=== PATIENT | male | born 1965 | race Caucasian/White ===

== ENCOUNTER 2018-03-12 08:57 | Inpatient (IN) | payer MEDICARE ==
[2018-03-12 09:20] VITALS: BMI 25.9
--- NOTE | 2018-03-12 13:38 | HP ---
CIWA Score - CIWA Score Nausea/Vomitin-No Nausea/No Vomiting Muscle Tremors: 4-Moderate,w/Arms Extend Anxiety: 4-Mod. Anxious/Guarded Agitation: 4-Moderately Restless Paroxysmal Sweats: 1-Minimal Palms Moist Orientation: 0-Oriented Tacttile Disturbances: 3-Moderate Itch/Numb/Burn Auditory Disturbances: 0-None Visual Disturbances: 0-None Headache: 0-None Present CIWA-Ar Total Score: 16 Admission ROS BHS - HPI Chief Complaint: ALCOHOL WITHDRAWAL SX Allergies/Adverse Reactions: Allergies Allergy/AdvReac Type Severity Reaction Status Date / Time No Known Allergies Allergy Verified 03/12/18 09:54 History of Present Illness: 52 Y/O H/MALE WITH A HX OF ALCOHOL DEPENDENCE SEEKING DETOX TX. PT REPORTS HIS DAUGHTER TOOK HIM TO [facility] YESTERDAY BECAUSE WAS NOT FEELING WELL AFTER DRINKING THE PREVIOUS DAY AND DEPRESSION. PT DISCHARGED TODAY. COPY OF D/ C PAPER IN PATIENT'S CHART. PT REPORTS HX DM AND DEPRESSION WITH NO MEDS. Exam Limitations: No Limitations - Ebola screening Have you traveled outside of the country in the last 21 days: No (N) Have you had contact with anyone from an Ebola affected area: No Have you been sick,other than usual withdrawal symptoms: No Do you have a fever: No - Review of Systems Constitutional: Chills, Loss of Appetite, Night Sweats, Changes in sleep, Unintentional Wgt. Loss EENT: reports: Blurred Vision, Tearing, Nose Congestion, Dental Problems ( MISSING TEETH), Throat Pain (SOMETIMIES) Respiratory: reports: No Symptoms reported Cardiac: reports: Lightheadedness, Chest Tightness GI: reports: Constipated, Diarrhea, Nausea, Poor Appetite, Poor Fluid Intake, Vomiting : reports: No Symptoms Reported Musculoskeletal: reports: Back Pain, Joint Pain, Muscle Pain Integumentary: reports: No Symptoms Reported Neuro: reports: Headache, Tremors, Unsteady Gait, Dizziness Endocrine: reports: Increased Hunger, Increased Thirst, Increased Urine Hematology: reports: Anemia (NO MEDS) Psychiatric: reports: Orientated x3, Anxious, Depressed Other Systems: Reviewed and Negative Patient History - Patient Medical History Hx Anemia: Yes (NO MEDS) Hx Asthma: No Hx Chronic Obstructive Pulmonary Disease (COPD): No Hx Cardiac Disorders: No Hx Hypertension: No (BP TODAY 157/97 BUT DENIES PREVIOUS HX) Hx Hypercholesterolemia: Yes (NO MEDS;LAST TAKEN TWO YEARS AGO) HX Cerebrovascular Accident: No Hx Seizures: No Hx Diabetes: Yes (NO CURRENT MEDS; LAST TAKEN 2 YRS AGO"WHEN I LOST THEM.METFORMIN 2X A DAY") Hx Gastrointestinal Disorders: No Hx Genitourinary Disorders: No Hx Sexually Transmitted Disorders: No Hx Renal Disease (ESRD): No Hx Thyroid Disease: No Hx Human Immunodeficiency Virus (HIV): No (NEGATIVE HX) Hx Hepatitis C: No Hx Depression: Yes (NO CURRENT MED;LAST TAKEN 2 YEARS AGO) Hx Suicide Attempt: Yes (hanged self with a rope at age 40;DENIES CURRENT S/I) Hx Bipolar Disorder: Yes Hx Schizophrenia: No - Patient Surgical History Past Surgical History: Yes Hx Neurologic Surgery: No Hx Cataract Extraction: No Hx Cardiac Surgery: No Hx Lung Surgery: No Hx Breast Surgery: No Hx Breast Biopsy: No Hx Abdominal Surgery: Yes Hx Appendectomy: Yes Hx Cholecystectomy: No Hx Genitourinary Surgery: No Hx Section: No Hx Orthopedic Surgery: No Other Surgical History: lower back sx Anesthesia Reaction: No - PPD History Previous Implant?: Yes Documented Results: Negative w/o proof Implanted On Prior [facility] Admission?: No - Reproductive History Patient is a Female of Child Bearing Age (11 -55 yrs old): No (MALE) - Smoking Cessation Smoking history: Current every day smoker Have you smoked in the past 12 months: Yes Aproximately how many cigarettes per day: 10 Hx Chewing Tobacco Use: No Initiated information on smoking cessation: Yes 'Breaking Loose' booklet given: 03/12/18 - Substance & Tx. History Hx Alcohol Use: Yes (BEER/VODKA) Hx Substance Use: No (STOPPED HEROIN X ONE YEAR AGO) Substance Use Type: Alcohol Hx Substance Use Treatment: Yes ([facility] FOR HEROIN;) - Substances Abused Alcohol-beer/vodka Route: Oral Frequency: 3-6 times per week Amount used: 1 case//1-2 pts. Age of first use: 10 Date of Last Use: 03/10/18 Family Disease History - Family Disease History Family Disease History: Diabetes: Father (), CA: Mother (), Other: Sister (HEROIN ADDICTION) Admission Physical Exam BHS - Vital Signs Vital Signs: Vital Signs - 24 hr 08/20/18 09:19 Temperature 97.6 F Pulse Rate 77 Respiratory 18 Rate Blood Pressure 157/97 - Physical General Appearance: Yes: Moderate Distress, Irritable, Anxious HEENTM: Yes: EOMI, Normocephalic, CLARIBEL, Pharynx Normal Respiratory: Yes: Chest Non-Tender, Lungs Clear, Normal Breath Sounds, No Respiratory Distress Neck: Yes: No masses,lesions,Nodules, Supple, Trachea in good position Breast: Yes: Breast Exam Deferred Cardiology: Yes: Regular Rhythm, Regular Rate, S1, S2 Abdominal: Yes: Within Normal Limits, Normal Bowel Sounds, Non Tender, Soft, Surgical Scar (MID LOWER ABDOMEN-S/P APPENDECTOMY) Genitourinary: Yes: Within Normal Limits Back: Yes: Surgical Scar (S/P SPINE SX DUE TO INFECTION) Musculoskeletal: Yes: full range of Motion, Gait Steady Extremities: Yes: Normal Range of Motion, Non-Tender Neurological: Yes: 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-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 NML intact, Fully Oriented, Alert, Motor Strength 5/5 Integumentary: Yes: Dry, Warm Lymphatic: Yes: Within Normal Limits - Diagnostic (1) Alcohol dependence with uncomplicated withdrawal Current Visit: Yes Status: Acute (2) Diabetes mellitus Current Visit: Yes Status: Chronic (3) History of hyperlipidemia Current Visit: Yes Status: Suspected (4) Nicotine dependence Current Visit: Yes Status: Acute Qualifiers: Nicotine product type: cigarettes Substance use status: in withdrawal Qualified Code(s): F17.213 - Nicotine dependence, cigarettes, with withdrawal (5) Back pain Current Visit: Yes Status: Chronic Qualifiers: Back pain location: low back pain Back pain laterality: midline Sciatica presence: without sciatica (6) History of anemia Current Visit: Yes Status: Suspected (7) History of depression Current Visit: Yes Status: Chronic Cleared for Admission [facility] - Detox or Rehab [facility] Level of Care: Medically Managed Detox Regimen/Protocol: Librium [facility] Breath Alcohol Content Breath Alcohol Content: 0 Urine Drug Screen - Results Drug Screen Negative: Yes
[2018-03-12] MEDS ORDERED: chlordiazePOXIDE HCL 25 MG CAPSULE PO PRN (13:59)
[2018-03-12] MEDS ORDERED: NICOTINE POLACRILEX 2 MG GUM BUC PRN (13:59)
[2018-03-12] MEDS ORDERED: LOPERAMIDE HCL 2 MG CAPSULE PO PRN (13:59)
[2018-03-12] MEDS ORDERED: MAGNESIUM HYDROX 2400MG/30ML ORAL SUSPENSION 30 ML CUP PO PRN (13:59)
[2018-03-12] MEDS ORDERED: ACETAMINOPHEN 325 MG TABLET (FP) PO PRN (13:59)
[2018-03-12] MEDS ORDERED: MAGNESIUM CITRATE 300 ML BOTTLE PO PRN (13:59)
[2018-03-12] MEDS ORDERED: MAG HYDROX/AL HYDROX/SIMETH 30 ML UNIT-DOSE CUP PO PRN (13:59)
[2018-03-12] MEDS ORDERED: MENTHOL/PHENOL 1 EACH UD MM PRN (13:59)
[2018-03-12] MEDS ORDERED: IBUPROFEN 400 MG TABLET (FP) PO PRN (13:59)
[2018-03-12] MEDS ORDERED: P-EPHED 60MG/TRIPROLIDI 2.5MG TABLET PO PRN (13:59)
[2018-03-12] MEDS ORDERED: guaiFENesin/D-METHORPHAN HB 10 ML UNIT-DOSE CUPS PO PRN (13:59)
[2018-03-12] MEDS: NICOTINE 14 MG/24 HOURS TOPICAL PATCH TD SCH (14:55)
--- NOTE | 2018-03-12 15:10 | EKG ---
Test Reason : Blood Pressure : / mmHG Vent. Rate : 069 BPM Atrial Rate : 069 BPM P-R Int : 148 ms QRS Dur : 096 ms QT Int : 398 ms P-R-T Axes : 066 035 063 degrees QTc Int : 426 ms NORMAL SINUS RHYTHM NORMAL ECG NO PREVIOUS ECGS AVAILABLE Confirmed by STEPH MORFIN MD ([id number]) on 03/12/2018 3:09:50 PM Referred By: Confirmed By:STEPH MORFIN MD
[2018-03-12] MEDS: chlordiazePOXIDE HCL 25 MG CAPSULE PO SCH ×2 (17:21→22:38)
[2018-03-12] MEDS: THIAMINE HCL 100 MG TABLET (FP) PO SCH (22:39)
[2018-03-12] MEDS: MELATONIN 5 MG TABLETS PO PRN (22:39)
[2018-03-13 00:53] LABS: URINE APPEARANCE CLEAR; URINE BILIRUBIN NEGATIVE (<2.0 mg/dL); URINE COLOR YELLOW; URINE GLUCOSE (UA) 1+ (NEGATIVE); URINE KETONE NEGATIVE (NEGATIVE); URINE LEUK ESTERASE NEGATIVE (NEGATIVE); URINE NITRITE NEGATIVE (NEGATIVE); URINE PROTEIN NEGATIVE (NEGATIVE)
[2018-03-13] MEDS: chlordiazePOXIDE HCL 25 MG CAPSULE PO SCH ×4 (05:22→22:25)
[2018-03-13 10:23] LABS: HEMATOCRIT 42.7 % (35.4-49); HEMOGLOBIN 14.2 GM/dL (11.7-16.9); MCH 30.5 pg (25.7-33.7); MCHC 33.2 g/dl (32.0-35.9); MEAN CELL VOLUME 91.9 fl (80-96); MEAN PLT VOLUME 9.4 fl (7.5-11.1); PLATELET COUNT 216 K/MM3 (134-434); RBC 4.65 M/mm3 (4.00-5.60); WHITE BLOOD COUNT 6.2 K/mm3 (4.0-10.0)
[2018-03-13] MEDS: PRENATAL VITAMINS W/ FOLIC ACID TABLET (FP) PO SCH (10:27)
[2018-03-13] MEDS: NICOTINE 14 MG/24 HOURS TOPICAL PATCH TD SCH (10:28)
[2018-03-13 10:52] LABS: ALBUMIN 3.7 g/dl (3.4-5.0); ANION GAP 6 (8-16); BLOOD UREA NITROGEN 11 mg/dL (7-18); CALCIUM 8.9 mg/dL (8.5-10.1); CHLORIDE 103 mmol/L (98-107); CO2 30 mmol/L (21-32); GLUCOSE,RANDOM 284 mg/dL (74-106); POTASSIUM 4.8 mmol/L (3.5-5.1); SODIUM 139 mmol/L (136-145)
[2018-03-13 10:56] LABS: ALK PHOS 130 U/L (45-117); BILIRUBIN,TOTAL 0.3 mg/dL (0.2-1.0); CREATININE 0.8 mg/dL (0.7-1.3); SGOT/AST 61 U/L (15-37); SGPT/ALT 187 U/L (12-78); TOT PROT 7.6 g/dl (6.4-8.2)
--- NOTE | 2018-03-13 11:13 | PN ---
S CIWA - CIWA Score Nausea/Vomitin-No Nausea/No Vomiting Muscle Tremors: 5 Anxiety: 4-Mod. Anxious/Guarded Agitation: 3 Paroxysmal Sweats: 1-Minimal Palms Moist Orientation: 0-Oriented Tacttile Disturbances: 0-None Auditory Disturbances: 0-None Visual Disturbances: 0-None Headache: 0-None Present CIWA-Ar Total Score: 13 BHS Progress Note (SOAP) Subjective: ANXIETY,SWEATS,TREMORS,FATIGUE. Objective: 03/13/18 11:08 Vital Signs 03/13/18 03/13/18 03/13/18 03:30 06:11 06:30 Temperature 97.0 F L Pulse Rate 66 Respiratory 18 18 18 Rate Blood Pressure 97/67 03/13/18 09:21 Temperature 97.7 F Pulse Rate 77 Respiratory 18 Rate Blood Pressure 123/86 Laboratory Tests 03/12/18 03/12/18 03/12/18 10:18 16:23 23:21 WBC RBC Hgb Hct MCV MCH MCHC RDW Plt Count MPV Sodium Potassium Chloride Carbon Dioxide Anion Gap BUN Creatinine Creat Clearance w eGFR POC Glucometer 284 249 Random Glucose Calcium Total Bilirubin AST ALT Alkaline Phosphatase Total Protein Albumin Urine Color Yellow Urine Appearance Clear Urine pH 5.0 Ur Specific [place] 1.024 Urine Protein Negative Urine Glucose (UA) 1+ H Urine Ketones Negative Urine Blood Negative Urine Nitrite Negative Urine Bilirubin Negative Urine Urobilinogen 2.0 Ur Leukocyte Esterase Negative 03/13/18 03/13/18 03/13/18 05:22 06:00 06:00 WBC 6.2 RBC 4.65 Hgb 14.2 Hct 42.7 MCV 91.9 MCH 30.5 MCHC 33.2 RDW 13.0 Plt Count 216 MPV 9.4 Sodium 139 Potassium 4.8 Chloride 103 Carbon Dioxide 30 Anion Gap 6 L BUN 11 Creatinine 0.8 Creat Clearance w eGFR > 60 POC Glucometer 203 Random Glucose 284 H Calcium 8.9 Total Bilirubin 0.3 AST 61 H ALT 187 H Alkaline Phosphatase 130 H Total Protein 7.6 Albumin 3.7 Urine Color Urine Appearance Urine pH Ur Specific [place] Urine Protein Urine Glucose (UA) Urine Ketones Urine Blood Urine Nitrite Urine Bilirubin Urine Urobilinogen Ur Leukocyte Esterase ELEVATED LIVER ENZYMES Assessment: 03/13/18 11:08 WITHDRAWAL SX Plan: CONTINUE DETOX INCREASE PO FLUIDS REPEAT LIVER PROFILE IN ON 03/15/18
[2018-03-13 11:50] LABS: SICKLE CELL SCREEN NEGATIVE (NEGATIVE)
--- NOTE | 2018-03-13 16:13 | CONSULT ---
[facility] Psychiatric Consult - Data Date of interview: 03/13/18 Admission source: [facility] Identifying data: First admission to [facility] for this 52 y/o male seeking detox treatment on for alcohol and cannabis dependence.Patient is single,a father of five,domiciled (lives with niece),unemployed and supported on [facility] benefits. Substance Abuse History: Confirmed by patient.Smoking history: Current every day smoker. Have you smoked in the past 12 months: Yes. Aproximately how many cigarettes per day: 10. Hx Chewing Tobacco Use: No. Initiated information on smoking cessation: Yes. 'Breaking Loose' booklet given: 03/12/18. - Substance & Tx. History. Hx Alcohol Use: Yes (BEER/VODKA). Hx Substance Use: No ( STOPPED HEROIN X ONE YEAR AGO). Substance Use Type: Alcohol. Hx Substance Use Treatment: Yes ([facility] FOR HEROIN;). - Substances Abused. Alcohol-beer/vodka. Route: Oral. Frequency: 3-6 times per week. Amount used: 1 case//1-2 pts. Age of first use: 10. Date of Last Use: 03/10/18 Medical History: Hypertension,diabetes mellitus,anemia,chronic lumbar pain and a history of abdominal surgery (appendectomy). Psychiatric History: Patient admits to a history of 2-3 psychiatric hospitalizations ([facility]).Diagnosed with Bipolar Disorder.Medications not recalled (not taken for several months).Patient denies contact with psychiatric OPD care providers.Just returned from [place], [place].Mr Pandya admitsto a history of three suicide attempts (overdose with drugs and hanging years ago). Physical/Sexual Abuse/Trauma History: Patient denies. Additional Comment: Drug Screen is negative. Mental Status Exam - Mental Status Exam Alert and Oriented to: Time, Place, Person Cognitive Function: Good Patient Appearance: Well Groomed Mood: Nervous, Withdrawn Affect: Mood Congruent Patient Behavior: Fatigued, Appropriate, Cooperative Speech Pattern: Clear, Appropriate Voice Loudness: Normal Thought Process: Intact, Goal Oriented Thought Disorder: Not Present Hallucinations: Denies Suicidal Ideation: Denies Homicidal Ideation: Denies Insight/Judgement: Poor Sleep: Poorly, Difficulty falling asleep Appetite: Good Muscle strength/Tone: Normal Gait/Station: Normal Psychiatric Findings - Problem List ([place] 1, 2,3) (1) Alcohol dependence with uncomplicated withdrawal Current Visit: Yes Status: Acute (2) Nicotine dependence Current Visit: Yes Status: Acute Qualifiers: Nicotine product type: cigarettes Substance use status: in withdrawal Qualified Code(s): F17.213 - Nicotine dependence, cigarettes, with withdrawal (3) Substance induced mood disorder Current Visit: Yes Status: Acute (4) Insomnia Current Visit: Yes Status: Acute - Initial Treatment Plan Initial Treatment Plan: Psychoeducation.Sleep hygiene.Detoxification in progress.Insomnia is addressed with melatonin 5 mg po hs.Side effects/benefits discussed.Patient agrees to this careplan.Observation.
--- NOTE | 2018-03-13 17:20 | PN ---
[facility] Progress Note Note: CALL FROM NURSE MONROY ON THIS PT WITH BGM OF 238 MG/DL PLAN:NOVOLOG INSULIN 2 UNITS SC ONCE REPEAT BGM @ 22:00 AVRIL
[2018-03-13] MEDS ORDERED: INSULIN (NOVOLOG) ASPART 100 UNITS/ML 10ML VIAL SQ ONE (17:30)
[2018-03-13] MEDS ORDERED: INSULIN (NOVOLOG) ASPART 100 UNITS/ML 10ML VIAL ONE (17:36)
[2018-03-13] MEDS: THIAMINE HCL 100 MG TABLET (FP) PO SCH (22:25)
[2018-03-13] MEDS: MELATONIN 5 MG TABLETS PO PRN (22:25)
[2018-03-14] MEDS: chlordiazePOXIDE HCL 25 MG CAPSULE PO SCH ×2 (05:12→10:20)
[2018-03-14] MEDS: NICOTINE 14 MG/24 HOURS TOPICAL PATCH TD SCH (10:20)
[2018-03-14] MEDS: PRENATAL VITAMINS W/ FOLIC ACID TABLET (FP) PO SCH (10:20)
--- NOTE | 2018-03-14 11:41 | PN ---
[facility] CIWA - CIWA Score Nausea/Vomitin-No Nausea/No Vomiting Muscle Tremors: 4-Moderate,w/Arms Extend Anxiety: 4-Mod. Anxious/Guarded Agitation: 4-Moderately Restless Paroxysmal Sweats: 1-Minimal Palms Moist Orientation: 0-Oriented Tacttile Disturbances: 0-None Auditory Disturbances: 0-None Visual Disturbances: 0-None Headache: 0-None Present CIWA-Ar Total Score: 13 S Progress Note (SOAP) Subjective: SLIGHT ANXIETY,SWEATS/CHILLS. DETOX TAPER PROCEEDING WELL. Objective: 03/14/18 11:40 Vital Signs 03/14/18 03/14/18 03/14/18 05:53 06:30 10:48 Temperature 97.1 F L 98.2 F Pulse Rate 70 79 Respiratory 16 18 18 Rate Blood Pressure 105/65 109/60 Laboratory Tests 03/12/18 03/12/18 03/12/18 06:00 10:18 16:23 WBC RBC Hgb Hct MCV MCH MCHC RDW Plt Count MPV Sickle Cell Screen Sodium Potassium Chloride Carbon Dioxide Anion Gap BUN Creatinine Creat Clearance w eGFR POC Glucometer 284 249 Random Glucose Calcium Total Bilirubin AST ALT Alkaline Phosphatase Total Protein Albumin Urine Color Urine Appearance Urine pH Ur Specific [place] Urine Protein Urine Glucose (UA) Urine Ketones Urine Blood Urine Nitrite Urine Bilirubin Urine Urobilinogen Ur Leukocyte Esterase RPR Titer HIV 1&2 Antibody Screen Negative HIV P24 Antigen Negative 03/12/18 03/13/18 03/13/18 23:21 05:22 06:00 WBC 6.2 RBC 4.65 Hgb 14.2 Hct 42.7 MCV 91.9 MCH 30.5 MCHC 33.2 RDW 13.0 Plt Count 216 MPV 9.4 Sickle Cell Screen Negative Sodium Potassium Chloride Carbon Dioxide Anion Gap BUN Creatinine Creat Clearance w eGFR POC Glucometer 203 Random Glucose Calcium Total Bilirubin AST ALT Alkaline Phosphatase Total Protein Albumin Urine Color Yellow Urine Appearance Clear Urine pH 5.0 Ur Specific [place] 1.024 Urine Protein Negative Urine Glucose (UA) 1+ H Urine Ketones Negative Urine Blood Negative Urine Nitrite Negative Urine Bilirubin Negative Urine Urobilinogen 2.0 Ur Leukocyte Esterase Negative RPR Titer HIV 1&2 Antibody Screen HIV P24 Antigen 03/13/18 03/13/18 03/13/18 06:00 06:00 16:13 WBC RBC Hgb Hct MCV MCH MCHC RDW Plt Count MPV Sickle Cell Screen Sodium 139 Potassium 4.8 Chloride 103 Carbon Dioxide 30 Anion Gap 6 L BUN 11 Creatinine 0.8 Creat Clearance w eGFR > 60 POC Glucometer 238 Random Glucose 284 H Calcium 8.9 Total Bilirubin 0.3 AST 61 H ALT 187 H Alkaline Phosphatase 130 H Total Protein 7.6 Albumin 3.7 Urine Color Urine Appearance Urine pH Ur Specific [place] Urine Protein Urine Glucose (UA) Urine Ketones Urine Blood Urine Nitrite Urine Bilirubin Urine Urobilinogen Ur Leukocyte Esterase RPR Titer Nonreactive HIV 1&2 Antibody Screen HIV P24 Antigen 03/13/18 03/14/18 21:52 05:12 WBC RBC Hgb Hct MCV MCH MCHC RDW Plt Count MPV Sickle Cell Screen Sodium Potassium Chloride Carbon Dioxide Anion Gap BUN Creatinine Creat Clearance w eGFR POC Glucometer 333 250 Random Glucose Calcium Total Bilirubin AST ALT Alkaline Phosphatase Total Protein Albumin Urine Color Urine Appearance Urine pH Ur Specific [place] Urine Protein Urine Glucose (UA) Urine Ketones Urine Blood Urine Nitrite Urine Bilirubin Urine Urobilinogen Ur Leukocyte Esterase RPR Titer HIV 1&2 Antibody Screen HIV P24 Antigen Assessment: 03/14/18 11:40 WITHDRAWAL SX Plan: CONTINUE DETOX
[2018-03-14] MEDS ORDERED: INSULIN (NOVOLOG) ASPART 100 UNITS/ML 10ML VIAL ONE (16:58)
[2018-03-14] MEDS: INSULIN SLIDING SCALE (NOVOLOG) 1 VIAL SQ SCH (17:30)
[2018-03-14] MEDS: chlordiazePOXIDE 5 MG CAPSULE PO SCH ×2 (17:48→22:33)
[2018-03-14] MEDS: THIAMINE HCL 100 MG TABLET (FP) PO SCH (22:33)
[2018-03-14] MEDS: MELATONIN 5 MG TABLETS PO PRN (22:34)
[2018-03-15] MEDS: chlordiazePOXIDE 5 MG CAPSULE PO SCH ×2 (05:21→11:04)
[2018-03-15] MEDS ORDERED: INSULIN (NOVOLOG) ASPART 100 UNITS/ML 10ML VIAL ONE ×2 (07:53→16:55)
[2018-03-15] MEDS: INSULIN SLIDING SCALE (NOVOLOG) 1 VIAL SQ SCH ×2 (07:56→17:20)
[2018-03-15 10:49] LABS: ALBUMIN 3.5 g/dl (3.4-5.0); ALK PHOS 127 U/L (45-117); BILIRUBIN,DIRECT < 0.2 mg/dL (0.0-0.2); BILIRUBIN,TOTAL 0.2 mg/dL (0.2-1.0); SGOT/AST 34 U/L (15-37); SGPT/ALT 123 U/L (12-78); TOT PROT 7.1 g/dl (6.4-8.2)
[2018-03-15] MEDS: PRENATAL VITAMINS W/ FOLIC ACID TABLET (FP) PO SCH (11:04)
[2018-03-15] MEDS: NICOTINE 14 MG/24 HOURS TOPICAL PATCH TD SCH (11:04)
--- NOTE | 2018-03-15 12:48 | PN ---
BHS Progress Note (SOAP) Subjective: OOB AMBULATING WITH STEADY GAIT. REPORTS DETOX PROCEEDING WELL. Objective: 03/15/18 12:44 Vital Signs 03/15/18 03/15/18 03/15/18 06:17 06:30 11:15 Temperature 97.1 F L 98.4 F Pulse Rate 69 104 H Respiratory 18 18 18 Rate Blood Pressure 105/65 97/56 Laboratory Tests 03/12/18 03/12/18 03/12/18 06:00 10:18 16:23 WBC RBC Hgb Hct MCV MCH MCHC RDW Plt Count MPV Sickle Cell Screen Sodium Potassium Chloride Carbon Dioxide Anion Gap BUN Creatinine Creat Clearance w eGFR POC Glucometer 284 249 Random Glucose Calcium Total Bilirubin Direct Bilirubin AST ALT Alkaline Phosphatase Total Protein Albumin Urine Color Urine Appearance Urine pH Ur Specific [place] Urine Protein Urine Glucose (UA) Urine Ketones Urine Blood Urine Nitrite Urine Bilirubin Urine Urobilinogen Ur Leukocyte Esterase RPR Titer HIV 1&2 Antibody Screen Negative HIV P24 Antigen Negative 03/12/18 03/13/18 03/13/18 23:21 05:22 06:00 WBC 6.2 RBC 4.65 Hgb 14.2 Hct 42.7 MCV 91.9 MCH 30.5 MCHC 33.2 RDW 13.0 Plt Count 216 MPV 9.4 Sickle Cell Screen Negative Sodium Potassium Chloride Carbon Dioxide Anion Gap BUN Creatinine Creat Clearance w eGFR POC Glucometer 203 Random Glucose Calcium Total Bilirubin Direct Bilirubin AST ALT Alkaline Phosphatase Total Protein Albumin Urine Color Yellow Urine Appearance Clear Urine pH 5.0 Ur Specific [place] 1.024 Urine Protein Negative Urine Glucose (UA) 1+ H Urine Ketones Negative Urine Blood Negative Urine Nitrite Negative Urine Bilirubin Negative Urine Urobilinogen 2.0 Ur Leukocyte Esterase Negative RPR Titer HIV 1&2 Antibody Screen HIV P24 Antigen 03/13/18 03/13/18 03/13/18 06:00 06:00 16:13 WBC RBC Hgb Hct MCV MCH MCHC RDW Plt Count MPV Sickle Cell Screen Sodium 139 Potassium 4.8 Chloride 103 Carbon Dioxide 30 Anion Gap 6 L BUN 11 Creatinine 0.8 Creat Clearance w eGFR > 60 POC Glucometer 238 Random Glucose 284 H Calcium 8.9 Total Bilirubin 0.3 Direct Bilirubin AST 61 H ALT 187 H Alkaline Phosphatase 130 H Total Protein 7.6 Albumin 3.7 Urine Color Urine Appearance Urine pH Ur Specific [place] Urine Protein Urine Glucose (UA) Urine Ketones Urine Blood Urine Nitrite Urine Bilirubin Urine Urobilinogen Ur Leukocyte Esterase RPR Titer Nonreactive HIV 1&2 Antibody Screen HIV P24 Antigen 03/13/18 03/14/18 03/14/18 21:52 05:12 16:19 WBC RBC Hgb Hct MCV MCH MCHC RDW Plt Count MPV Sickle Cell Screen Sodium Potassium Chloride Carbon Dioxide Anion Gap BUN Creatinine Creat Clearance w eGFR POC Glucometer 333 250 332 Random Glucose Calcium Total Bilirubin Direct Bilirubin AST ALT Alkaline Phosphatase Total Protein Albumin Urine Color Urine Appearance Urine pH Ur Specific [place] Urine Protein Urine Glucose (UA) Urine Ketones Urine Blood Urine Nitrite Urine Bilirubin Urine Urobilinogen Ur Leukocyte Esterase RPR Titer HIV 1&2 Antibody Screen HIV P24 Antigen 03/15/18 03/15/18 05:20 07:00 WBC RBC Hgb Hct MCV MCH MCHC RDW Plt Count MPV Sickle Cell Screen Sodium Potassium Chloride Carbon Dioxide Anion Gap BUN Creatinine Creat Clearance w eGFR POC Glucometer 265 Random Glucose Calcium Total Bilirubin 0.2 Direct Bilirubin < 0.2 AST 34 D ALT 123 H D Alkaline Phosphatase 127 H Total Protein 7.1 Albumin 3.5 Urine Color Urine Appearance Urine pH Ur Specific [place] Urine Protein Urine Glucose (UA) Urine Ketones Urine Blood Urine Nitrite Urine Bilirubin Urine Urobilinogen Ur Leukocyte Esterase RPR Titer HIV 1&2 Antibody Screen HIV P24 Antigen Assessment: 03/15/18 12:46 WITHDRAWAL SX Plan: CONTINUE DETOX PT WILL BE GIVEN A COPY OF LAB RESULT TO F/U WITH HIS PMD TO ADDRESS MEDICAL COMORBIDITIES.
[2018-03-15] MEDS: chlordiazePOXIDE HCL 10 MG CAPSULE PO SCH ×2 (17:42→22:26)
[2018-03-15] MEDS: THIAMINE HCL 100 MG TABLET (FP) PO SCH (22:26)
[2018-03-15] MEDS: MELATONIN 5 MG TABLETS PO PRN (22:27)
[2018-03-16] MEDS: chlordiazePOXIDE HCL 10 MG CAPSULE PO SCH (05:36)
[2018-03-16] MEDS ORDERED: INSULIN (NOVOLOG) ASPART 100 UNITS/ML 10ML VIAL ONE (06:13)
[2018-03-16 06:20] VITALS: BP 103/67; PULSE 76; TEMP 96.8
[2018-03-16] MEDS: INSULIN SLIDING SCALE (NOVOLOG) 1 VIAL SQ SCH (06:36)
--- NOTE | 2018-03-16 08:43 | DS ---
[facility] Detox Discharge Summary Admission Date: 03/12/18 Discharge Date: 03/16/18 - History Present History: Alcohol Dependence Additional Comments: DETOX COMPLETED. ALERT O X 3. NAD. PT WAS INSTRUCTED TO FOLLOW UP AT [facility] FOR MEDICAL MANAGEMENT IN 1-2 WEEKS AFTER DISCHARGE TODAY.. Pertinent Past History: PLEASE SEE DX BELOW - Physical Exam Results Vital Signs: Vital Signs Temperature 96.8 F L 03/16/18 06:19 Pulse Rate 76 03/16/18 06:19 Respiratory Rate 18 03/16/18 06:19 Blood Pressure 103/67 03/16/18 06:19 O2 Sat by Pulse Oximetry (%) Pertinent Admission Physical Exam Findings: WITHDRAWAL SX Laboratory Tests 03/12/18 03/12/18 03/12/18 06:00 10:18 16:23 WBC RBC Hgb Hct MCV MCH MCHC RDW Plt Count MPV Sickle Cell Screen Sodium Potassium Chloride Carbon Dioxide Anion Gap BUN Creatinine Creat Clearance w eGFR POC Glucometer 284 249 Random Glucose Calcium Total Bilirubin Direct Bilirubin AST ALT Alkaline Phosphatase Total Protein Albumin Urine Color Urine Appearance Urine pH Ur Specific [place] Urine Protein Urine Glucose (UA) Urine Ketones Urine Blood Urine Nitrite Urine Bilirubin Urine Urobilinogen Ur Leukocyte Esterase RPR Titer HIV 1&2 Antibody Screen Negative HIV P24 Antigen Negative 03/12/18 03/13/18 03/13/18 23:21 05:22 06:00 WBC 6.2 RBC 4.65 Hgb 14.2 Hct 42.7 MCV 91.9 MCH 30.5 MCHC 33.2 RDW 13.0 Plt Count 216 MPV 9.4 Sickle Cell Screen Negative Sodium Potassium Chloride Carbon Dioxide Anion Gap BUN Creatinine Creat Clearance w eGFR POC Glucometer 203 Random Glucose Calcium Total Bilirubin Direct Bilirubin AST ALT Alkaline Phosphatase Total Protein Albumin Urine Color Yellow Urine Appearance Clear Urine pH 5.0 Ur Specific [place] 1.024 Urine Protein Negative Urine Glucose (UA) 1+ H Urine Ketones Negative Urine Blood Negative Urine Nitrite Negative Urine Bilirubin Negative Urine Urobilinogen 2.0 Ur Leukocyte Esterase Negative RPR Titer HIV 1&2 Antibody Screen HIV P24 Antigen 03/13/18 03/13/18 03/13/18 06:00 06:00 16:13 WBC RBC Hgb Hct MCV MCH MCHC RDW Plt Count MPV Sickle Cell Screen Sodium 139 Potassium 4.8 Chloride 103 Carbon Dioxide 30 Anion Gap 6 L BUN 11 Creatinine 0.8 Creat Clearance w eGFR > 60 POC Glucometer 238 Random Glucose 284 H Calcium 8.9 Total Bilirubin 0.3 Direct Bilirubin AST 61 H ALT 187 H Alkaline Phosphatase 130 H Total Protein 7.6 Albumin 3.7 Urine Color Urine Appearance Urine pH Ur Specific [place] Urine Protein Urine Glucose (UA) Urine Ketones Urine Blood Urine Nitrite Urine Bilirubin Urine Urobilinogen Ur Leukocyte Esterase RPR Titer Nonreactive HIV 1&2 Antibody Screen HIV P24 Antigen 03/13/18 03/14/18 03/14/18 21:52 05:12 16:19 WBC RBC Hgb Hct MCV MCH MCHC RDW Plt Count MPV Sickle Cell Screen Sodium Potassium Chloride Carbon Dioxide Anion Gap BUN Creatinine Creat Clearance w eGFR POC Glucometer 333 250 332 Random Glucose Calcium Total Bilirubin Direct Bilirubin AST ALT Alkaline Phosphatase Total Protein Albumin Urine Color Urine Appearance Urine pH Ur Specific [place] Urine Protein Urine Glucose (UA) Urine Ketones Urine Blood Urine Nitrite Urine Bilirubin Urine Urobilinogen Ur Leukocyte Esterase RPR Titer HIV 1&2 Antibody Screen HIV P24 Antigen 03/15/18 03/15/18 03/15/18 05:20 07:00 16:23 WBC RBC Hgb Hct MCV MCH MCHC RDW Plt Count MPV Sickle Cell Screen Sodium Potassium Chloride Carbon Dioxide Anion Gap BUN Creatinine Creat Clearance w eGFR POC Glucometer 265 336 Random Glucose Calcium Total Bilirubin 0.2 Direct Bilirubin < 0.2 AST 34 D ALT 123 H D Alkaline Phosphatase 127 H Total Protein 7.1 Albumin 3.5 Urine Color Urine Appearance Urine pH Ur Specific [place] Urine Protein Urine Glucose (UA) Urine Ketones Urine Blood Urine Nitrite Urine Bilirubin Urine Urobilinogen Ur Leukocyte Esterase RPR Titer HIV 1&2 Antibody Screen HIV P24 Antigen 03/16/18 05:37 WBC RBC Hgb Hct MCV MCH MCHC RDW Plt Count MPV Sickle Cell Screen Sodium Potassium Chloride Carbon Dioxide Anion Gap BUN Creatinine Creat Clearance w eGFR POC Glucometer 351 Random Glucose Calcium Total Bilirubin Direct Bilirubin AST ALT Alkaline Phosphatase Total Protein Albumin Urine Color Urine Appearance Urine pH Ur Specific [place] Urine Protein Urine Glucose (UA) Urine Ketones Urine Blood Urine Nitrite Urine Bilirubin Urine Urobilinogen Ur Leukocyte Esterase RPR Titer HIV 1&2 Antibody Screen HIV P24 Antigen COPY OF LAB RESULTS GIVEN TO PATIENT TO TAKE TO HIS PRIMARY CARE VISIT. - Treatment Hospital Course: Detox Protocol Followed, Detoxed Safely, Responded well, Discharged Condition Good - Medication Discharge Medications: Ambulatory Orders metFORMIN HCL [Glucophage -] 500 mg PO DAILY #30 tablet 03/16/18 - Diagnosis (1) Alcohol dependence with uncomplicated withdrawal Status: Acute (2) Diabetes mellitus Status: Chronic (3) History of hyperlipidemia Status: Suspected (4) Nicotine dependence Status: Acute Qualifiers: Nicotine product type: cigarettes Substance use status: in withdrawal Qualified Code(s): F17.213 - Nicotine dependence, cigarettes, with withdrawal (5) Back pain Status: Chronic Qualifiers: Back pain location: low back pain Back pain laterality: midline Sciatica presence: without sciatica (6) History of anemia Status: Suspected (7) History of depression Status: Chronic (8) Elevated liver enzymes Status: Acute - AMA Did Patient Leave Against Medical Advice: No
--- NOTE | 2018-03-16 13:00 | PN ---
S Progress Note (SOAP) Subjective: DETOX COMPLETED. ALERT O X 3. NAD. PT REPORTS WILL GO TO [facility] FOR PRIMARY CARE FOLLOW UP FOR HIS COMORBID CONDITIONS. PT REPORTS HE WAS ON METFORMIN IN [place] BEFORE [place] TO [place] AND STOPPED. COMPLETE HX FROM PATIENT UNAVAILABLE BEFORE TODAY. Objective: 03/16/18 12:58 Vital Signs 03/16/18 06:19 Temperature 96.8 F L Pulse Rate 76 Respiratory 18 Rate Blood Pressure 103/67 Laboratory Tests 03/12/18 03/12/18 03/12/18 06:00 10:18 16:23 WBC RBC Hgb Hct MCV MCH MCHC RDW Plt Count MPV Sickle Cell Screen Sodium Potassium Chloride Carbon Dioxide Anion Gap BUN Creatinine Creat Clearance w eGFR POC Glucometer 284 249 Random Glucose Calcium Total Bilirubin Direct Bilirubin AST ALT Alkaline Phosphatase Total Protein Albumin Urine Color Urine Appearance Urine pH Ur Specific [place] Urine Protein Urine Glucose (UA) Urine Ketones Urine Blood Urine Nitrite Urine Bilirubin Urine Urobilinogen Ur Leukocyte Esterase RPR Titer HIV 1&2 Antibody Screen Negative HIV P24 Antigen Negative 03/12/18 03/13/18 03/13/18 23:21 05:22 06:00 WBC 6.2 RBC 4.65 Hgb 14.2 Hct 42.7 MCV 91.9 MCH 30.5 MCHC 33.2 RDW 13.0 Plt Count 216 MPV 9.4 Sickle Cell Screen Negative Sodium Potassium Chloride Carbon Dioxide Anion Gap BUN Creatinine Creat Clearance w eGFR POC Glucometer 203 Random Glucose Calcium Total Bilirubin Direct Bilirubin AST ALT Alkaline Phosphatase Total Protein Albumin Urine Color Yellow Urine Appearance Clear Urine pH 5.0 Ur Specific [place] 1.024 Urine Protein Negative Urine Glucose (UA) 1+ H Urine Ketones Negative Urine Blood Negative Urine Nitrite Negative Urine Bilirubin Negative Urine Urobilinogen 2.0 Ur Leukocyte Esterase Negative RPR Titer HIV 1&2 Antibody Screen HIV P24 Antigen 03/13/18 03/13/18 03/13/18 06:00 06:00 16:13 WBC RBC Hgb Hct MCV MCH MCHC RDW Plt Count MPV Sickle Cell Screen Sodium 139 Potassium 4.8 Chloride 103 Carbon Dioxide 30 Anion Gap 6 L BUN 11 Creatinine 0.8 Creat Clearance w eGFR > 60 POC Glucometer 238 Random Glucose 284 H Calcium 8.9 Total Bilirubin 0.3 Direct Bilirubin AST 61 H ALT 187 H Alkaline Phosphatase 130 H Total Protein 7.6 Albumin 3.7 Urine Color Urine Appearance Urine pH Ur Specific [place] Urine Protein Urine Glucose (UA) Urine Ketones Urine Blood Urine Nitrite Urine Bilirubin Urine Urobilinogen Ur Leukocyte Esterase RPR Titer Nonreactive HIV 1&2 Antibody Screen HIV P24 Antigen 03/13/18 03/14/18 03/14/18 21:52 05:12 16:19 WBC RBC Hgb Hct MCV MCH MCHC RDW Plt Count MPV Sickle Cell Screen Sodium Potassium Chloride Carbon Dioxide Anion Gap BUN Creatinine Creat Clearance w eGFR POC Glucometer 333 250 332 Random Glucose Calcium Total Bilirubin Direct Bilirubin AST ALT Alkaline Phosphatase Total Protein Albumin Urine Color Urine Appearance Urine pH Ur Specific [place] Urine Protein Urine Glucose (UA) Urine Ketones Urine Blood Urine Nitrite Urine Bilirubin Urine Urobilinogen Ur Leukocyte Esterase RPR Titer HIV 1&2 Antibody Screen HIV P24 Antigen 03/15/18 03/15/18 03/15/18 05:20 07:00 16:23 WBC RBC Hgb Hct MCV MCH MCHC RDW Plt Count MPV Sickle Cell Screen Sodium Potassium Chloride Carbon Dioxide Anion Gap BUN Creatinine Creat Clearance w eGFR POC Glucometer 265 336 Random Glucose Calcium Total Bilirubin 0.2 Direct Bilirubin < 0.2 AST 34 D ALT 123 H D Alkaline Phosphatase 127 H Total Protein 7.1 Albumin 3.5 Urine Color Urine Appearance Urine pH Ur Specific [place] Urine Protein Urine Glucose (UA) Urine Ketones Urine Blood Urine Nitrite Urine Bilirubin Urine Urobilinogen Ur Leukocyte Esterase RPR Titer HIV 1&2 Antibody Screen HIV P24 Antigen 03/16/18 05:37 WBC RBC Hgb Hct MCV MCH MCHC RDW Plt Count MPV Sickle Cell Screen Sodium Potassium Chloride Carbon Dioxide Anion Gap BUN Creatinine Creat Clearance w eGFR POC Glucometer 351 Random Glucose Calcium Total Bilirubin Direct Bilirubin AST ALT Alkaline Phosphatase Total Protein Albumin Urine Color Urine Appearance Urine pH Ur Specific [place] Urine Protein Urine Glucose (UA) Urine Ketones Urine Blood Urine Nitrite Urine Bilirubin Urine Urobilinogen Ur Leukocyte Esterase RPR Titer HIV 1&2 Antibody Screen HIV P24 Antigen Assessment: 03/16/18 12:58 MEDICALLY STABLE Plan: D/C PT TODAY PT INSTRUCTED TO FOLLOW UP AT [facility] FOR PRIMARY CARE IN 1-2 WEEKS AFTER D/C TODAY. COPY OF LAB AND RX FOR METFORMIN X #30 GIVEN TO PATIENT FOR FOLLOW UP WITH PRIMARY CARE.
== END 2018-03-16 09:04 | disposition home or self-care (01) | DRG 897 ==
LOC: YASAS 08:57 → Y3N 14:08
PROVIDERS: ADMIT Surgery; ATTEND Surgery
PROC: HZ2ZZZZ Detoxification Services for Substance Abuse Treatment (ICD-10-PCS; principal; 2018-03-12)
DX: F10.230 Alcohol dependence with withdrawal, uncomplicated (principal); F17.210 Nicotine dependence, cigarettes, uncomplicated; F19.24 Other psychoactive substance dependence with psychoactive substance-induced mood disorder; E11.9 Type 2 diabetes mellitus without complications; M54.5 Low back pain; G47.00 Insomnia, unspecified; Z91.5 Personal history of self-harm
CPT/HCPCS: 36415; 80053; 80076; 81003; 82962; 85027; 85660; 86593; 87389; 93005; 93010